=== PATIENT | male | born 1965 | race Caucasian/White ===

== ENCOUNTER 2016-04-22 13:15 | Emergency (ER) | payer OTHER ==
[2016-04-22 14:03] VITALS: BP 125/88
--- NOTE | 2016-04-22 15:08 | UC ---
UC General HPI - HPI Summary HPI Summary: 50 year old male presents complaining of fatigue, sore throat, and fever-like symptoms x 2-3 days. - History of Current Complaint Chief Complaint: UCGeneralIllness Stated Complaint: THROAT PAIN Time Seen by Provider: 04/22/16 14:42 Hx Obtained From: Patient Onset/Duration: Gradual Onset Onset Severity: Mild Current Severity: Moderate - Pain upon swallowing - Allergy/Home Medications Allergies/Adverse Reactions: Allergies Allergy/AdvReac Type Severity Reaction Status Date / Time Clonazepam [From Klonopin] Allergy Altered Verified 10/01/14 17:33 Mental Status Ziprasidone [From Geodon] Allergy Unknown Verified 10/01/14 17:33 Reaction Details Home Medications: Home Medications Ibuprofen TAB* [Advil TAB*] 600 mg PO 04/22/16 [History] - Additional Comments Additional History of Present Illness Comments: Daughter diagnosed with Influenza 2 days ago 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 PMH/Surg Hx/FS Hx/Imm Hx Previously Healthy: Yes - [place] Endocrine History Of: Denies: Diabetes, Thyroid Disease Cardiovascular History Of: Denies: Cardiac Disorders, Hypertension, Pacemaker/ICD Respiratory History Of: Reports: Asthma - NOT SINCE LOSING WEIGHT Denies: COPD GI/ History Of: Reports: Ulcer Neurological History Of: Denies: Seizures, Migraine Psychological History Of: Reports: Anxiety, Depression, Bipolar Disorder - Surgical History Surgical History: Yes Surgery Procedure, Year, and Place: CYST ABOVE EYE REMOVED. 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 [employer] Alcohol Use: Weekly Alcohol Amount: 1-2 Substance Use Type: Marijuana Substance Use Comment - Amount & Last Used: OCCASIONALLY Smoking Status (MU): Heavy Every Day Tobacco Smoker Type: Cigarettes Amount Used/How Often: 1 PPD Length of Time of Smoking/Using Tobacco: 40+ YEARS Have You Smoked in the Last Year: Yes Household Exposure Type: Cigarettes - Immunization History Most Recent Influenza Vaccination: unknown Most Recent Tetanus Shot: unknown Most Recent Pneumonia Vaccination: unknown Review of Systems Constitutional: Fever, Chills, Fatigue Skin: Negative Eyes: Negative ENT: Sore Throat Respiratory: Negative Cardiovascular: Negative Gastrointestinal: Vomiting - Once this morning after trying to eat breakfast, denies feeling nauseated currently Genitourinary: Negative Motor: Negative Neurovascular: Negative Musculoskeletal: Negative Neurological: Negative Psychological: Negative All Other Systems Reviewed And Are Negative: Yes Physical Exam Triage Information Reviewed: Yes Appearance: Well-Appearing, No Pain Distress Vital Signs: Initial Vital Signs Temp 98.4 F 04/22/16 13:59 Pulse 67 04/22/16 13:59 Resp 18 04/22/16 13:59 BP 125/88 04/22/16 13:59 Pulse Ox 99 04/22/16 13:59 Vital Signs Reviewed: Yes Eye Exam: Normal Eyes: Positive: Conjunctiva Clear ENT: Positive: Hearing grossly normal, Pharyngeal erythema, TMs normal, Tonsillar exudate Dental Exam: Normal Neck: Positive: Supple, Nontender, No Lymphadenopathy Respiratory: Positive: Chest non-tender, Lungs clear, Normal breath sounds, No respiratory distress, No accessory muscle use Cardiovascular: Positive: RRR, No Murmur, Pulses Normal Abdomen Description: Positive: Nontender, No Organomegaly, Soft Bowel Sounds: Positive: Present Musculoskeletal Exam: Normal Musculoskeletal: Positive: Strength Intact, ROM Intact Neurological Exam: Normal Neurological: Positive: Alert Psychological Exam: Normal Course/Dx - Differential Dx - Multi-Symptom Provider Diagnoses: Pharyngitis of viral origin. Upper respiratory infection Discharge - Discharge Plan Condition: Stable Disposition: HOME Patient Education Materials: Pharyngitis (ED), Upper Respiratory Infection (ED) Referrals: Mitul Tapia MD [Primary Care Provider] - If Needed Additional Instructions: As discussed, seek medical attention from Primary Care or another facility with any new or worsening symptoms.
== END 2016-04-22 15:39 | disposition home or self-care (01) ==
LOC: UCEAST 13:15
DX: J02.9 Acute pharyngitis, unspecified (principal); J06.9 Acute upper respiratory infection, unspecified; Z88.8 Allergy status to other drugs, medicaments and biological substances; F17.210 Nicotine dependence, cigarettes, uncomplicated
CPT/HCPCS: 87502; 87651; 99211; G0463

== ENCOUNTER 2016-04-27 04:22 | Emergency (ER) | payer OTHER ==
--- NOTE | 2016-04-27 05:00 | ED ---
I, Anthony,Bayron, scribed for Daksha Davenport MD on 04/27/16 at 0453 . Influenza-Like Illness - HPI Summary HPI Summary: This 50 y/o male presents to ED for rhinorrhea, productive cough since a week ago. Pt has been controlling his symptoms with Mucinex. Pt lives with his . Current smoker and drinker. 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 FHx is positive for cardiac dz to father. Primary care involves Dr. Tapia. - History of Current Complaint Time Seen by Provider: 04/27/16 04:35 Hx Obtained From: Patient Onset/Duration: Gradual Onset Associated Signs & Symptoms: Cough - Allergy/Home Medications Allergies/Adverse Reactions: Allergies Allergy/AdvReac Type Severity Reaction Status Date / Time Clonazepam [From Klonopin] Allergy Altered Verified 10/01/14 17:33 Mental Status Ziprasidone [From Geodon] Allergy Unknown Verified 10/01/14 17:33 Reaction Details PMH/Surg Hx/FS Hx/Imm Hx Endocrine/Hematology History: Denies: Hx Diabetes, Hx Thyroid Disease Cardiovascular History: Denies: Hx Hypertension, Hx Pacemaker/ICD Respiratory History: Reports: Hx Asthma - NOT SINCE LOSING WEIGHT, Hx Sleep Apnea, Other Respiratory Problems/Disorders - 1-3 ppd smoker Denies: Hx Chronic Obstructive Pulmonary Disease (COPD) GI History: Reports: Hx Ulcer History: Reports: Other Problems/Disorders - UTI's Musculoskeletal History: Reports: Hx Orthopedic Injury - torn ACL Sensory History: Denies: Hx Hearing Aid Neurological History: Denies: Hx Migraine, Hx Seizures Psychiatric History: Reports: Hx Anxiety, Hx Depression, Hx Inpatient Treatment , Hx Community Mental Health Tx, Hx Bipolar Disorder, Hx of Violent Episodes Against Others Denies: Hx Eating Disorder, Hx Panic Disorder - Surgical History Surgery Procedure, Year, and Place: CYST ABOVE EYE REMOVED. 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 [employer] Alcohol Use: Weekly Alcohol Amount: 1-2 Hx Substance Use: Yes Substance Use Type: Reports: Marijuana Substance Use Comment - Amount & Last Used: OCCASIONALLY Hx Tobacco Use: Yes Smoking Status (MU): Heavy Every Day Tobacco Smoker Type: Cigarettes Amount Used/How Often: 1 PPD Length of Time of Smoking/Using Tobacco: 40+ YEARS Have You Smoked in the Last Year: Yes Review of Systems Negative: Fever Positive: Nasal Discharge Negative: Chest Pain Positive: Cough Negative: Anxious, Depressed All Other Systems Reviewed And Are Negative: Yes Physical Exam Triage Information Reviewed: Yes Vital Signs Reviewed: Yes Appearance: Positive: Well-Appearing, No Pain Distress Skin: Positive: Warm, Skin Color Reflects Adequate Perfusion, Dry Head/Face: Positive: Normal Head/Face Inspection Eyes: Positive: JACOBY, Conjunctiva Clear ENT: Positive: Pharynx normal Neck: Positive: Supple, Nontender, No Lymphadenopathy Respiratory/Lung Sounds: Positive: Clear to Auscultation, Breath Sounds Present Cardiovascular: Positive: RRR, Pulses are Symmetrical in both Upper and Lower Extremities Musculoskeletal: Positive: Strength/ROM Intact Neurological: Positive: Sensory/Motor Intact, Alert, Oriented to Person Place, Time Flu Symptom Course/Dx - Course Course Of Treatment: well appearing male with sxms of green nasal discharge and some sinus discomfort for about 7 days. I have encouraged him to wait a few more days but have ordered augmentin for him to start him symptoms don't resolve - Diagnoses Provider Diagnoses: Sinusitis Discharge - Discharge Plan Condition: Stable Disposition: HOME The documentation as recorded by the Anthony shepard Soohyun accurately reflects the service I personally performed and the decisions made by me, Daksha Davenport MD.
[2016-04-27 05:24] VITALS: BP 116/79
== END 2016-04-27 05:25 | disposition home or self-care (01) ==
LOC: ED 04:22
DX: J32.9 Chronic sinusitis, unspecified (principal); R05 Cough; F17.210 Nicotine dependence, cigarettes, uncomplicated
CPT/HCPCS: 99282

== ENCOUNTER 2016-05-05 08:59 | Observation (INO) | payer OTHER ==
[~2016-05-05 08:59] MED LIST: Buffered Lidocaine 1% SYR 3ML* 3 ML/SYR SYRINGE INTRADERM ONE; Sodium Citrate/Citric Acid* 15 ML UDC PO ONE
[2016-05-05] MEDS ORDERED: Sodium Citrate/Citric Acid* 15 ML UDC ONE (09:06)
[2016-05-05] MEDS ORDERED: fentaNYL* 50 MCG/ML 2 ML VIAL (100 MCG VIAL) ONE ×3 (11:28→12:50)
[2016-05-05] MEDS ORDERED: Propofol* 10 MG/ML 20 ML BTL IV PUSH ONE ×2 (11:28→12:04)
[2016-05-05] MEDS ORDERED: Lidocaine 2% PF * 5 ML VIAL ONE (11:28)
[2016-05-05] MEDS ORDERED: Ondansetron INJ* 2 MG/ML VIAL IV PRN ×2 (12:18→12:30)
[2016-05-05] MEDS ORDERED: HYDROcodone/ACETAMIN 5-325 MG* 1 TAB PO PRN ×2 (12:30)
[2016-05-05] MEDS ORDERED: Ondansetron INJ* 2 MG/ML VIAL IM PRN (12:30)
[2016-05-05] MEDS ORDERED: Acetaminophen TAB* 325 MG PO PRN (12:30)
[2016-05-05] MEDS ORDERED: Morphine INJ* 2 MG/ML 1 ML CARPUJECT IV PRN (12:30)
[2016-05-05] MEDS ORDERED: Ondansetron TAB* 4 MG PO PRN (12:30)
[2016-05-05] MEDS: fentaNYL* 50 MCG/ML 2 ML VIAL (100 MCG VIAL) IV PRN ×2 (12:52→13:01)
[2016-05-05] MEDS ORDERED: HYDROcodone/ACET. 7.5/325 LIQ* 15 ML UDC PO PRN ×2 (12:55→21:47)
[2016-05-05] MEDS ORDERED: HYDROcodone/ACET. 7.5/325 LIQ* 15 ML UDC ONE (13:05)
[2016-05-05] MEDS ORDERED: Ibuprofen TAB* 600 MG PO SCH (21:00)
[2016-05-05] MEDS ORDERED: Amoxicillin/Clavulanate TAB* 875 MG PO SCH (21:00)
[2016-05-05] MEDS ORDERED: Lithium Carbonate TAB* 300 MG PO SCH (21:00)
[2016-05-05] MEDS ORDERED: lamoTRIgine TAB(*) 100 MG PO SCH (21:00)
[2016-05-05] MEDS ORDERED: Zolpidem TAB* 10 MG PO SCH (21:00)
[2016-05-05] MEDS: Gabapentin CAP(*) 300 MG PO SCH (21:47)
[2016-05-05] MEDS: HYDROcodone/ACET. 7.5/325 LIQ* 15 ML UDC PO PRN (22:00)
[2016-05-05] MEDS: Ibuprofen ADULT LIQ* 600 MG/30 ML UDC PO SCH (23:05)
[2016-05-06] MEDS: HYDROcodone/ACET. 7.5/325 LIQ* 15 ML UDC PO PRN ×3 (02:15→10:10)
[2016-05-06] MEDS: Ibuprofen ADULT LIQ* 600 MG/30 ML UDC PO SCH (08:41)
[2016-05-06] MEDS: Gabapentin CAP(*) 300 MG PO SCH (08:42)
[2016-05-06] MEDS ORDERED: lamoTRIgine TAB(*) 100 MG PO SCH (09:00)
[2016-05-06] MEDS ORDERED: Lithium Carbonate TAB* 300 MG PO SCH (09:00)
[2016-05-06] MEDS ORDERED: predniSONE TAB* 20 MG PO SCH (09:00)
--- NOTE | 2016-05-06 09:49 | OP ---
DATE OF OPERATION: 05/05/16 - ROOM #333 DATE OF : 67 SURGEON: Dr. Haley. ANESTHESIOLOGIST: Doug Montes DO ANESTHESIA: General PRE-OP DIAGNOSES: Hypertrophied tonsils, hypertrophied uvula and soft palate, and obstructive sleep apnea. POST-OP DIAGNOSES: Hypertrophied tonsils, hypertrophied uvula and soft palate, and obstructive sleep apnea. OPERATIVE PROCEDURE: Tonsillectomy and UPPP. INDICATIONS: Brief History: This 50-year-old gentleman with markedly enlarged tonsils, crowding of the soft palate, uvula, obstructive symptoms of sleep apnea , sleep study diagnosed sleep apnea, intolerant to CPAP, elected for surgical management. DESCRIPTION OF PROCEDURE: The patient was taken to the operating room. General anesthesia was given. The patient was intubated. Tongue, mandible, and soft palate were retracted. Bipolar dissection was carried out once the tonsils were removed. Hemostasis was obtained. Next we turned our attention to the uvuloplasty. A evelia shape of the mucosa of the uvula and soft palate was removed in a single layer. Portions of the muscle was removed, portion of the soft tissue was removed. I then advanced the posterior pillars to the anterior pillars and sutured it using multiple mattress Vicryl sutures. A evelia shaped defect was folded on to itself and soft palate-uvular junction was closed using interrupted Vicryl. Once this was done completely throughout the length of the uvula and soft palate, the patient was awakened, extubated, and sent to the recovery room in stable condition. Instrument and sponge count correct. Blood loss was approximately 25 cc. [id number]/[facility] #: [id number] [facility] HOSPITALArvin
[2016-05-06 11:59] VITALS: BP 125/69
== END 2016-05-06 13:10 | disposition home or self-care (01) ==
LOC: OR 08:59 → OBSVTOIN 15:12 → SSU 15:12 → INTOOBSV 15:12
PROVIDERS: ADMIT Otolaryngology; ATTEND Otolaryngology
PROC: 0CBNXZZ Excision of Uvula, External Approach (ICD-10-PCS; 2016-05-05)
PROC: 0CTPXZZ Resection of Tonsils, External Approach (ICD-10-PCS; 2016-05-05)
PROC: 0CB3XZZ Excision of Soft Palate, External Approach (ICD-10-PCS; principal; 2016-05-05 10:30)
DX: J35.1 Hypertrophy of tonsils (principal); G47.33 Obstructive sleep apnea (adult) (pediatric); K13.79 Other lesions of oral mucosa; Q38.2 Macroglossia; F17.210 Nicotine dependence, cigarettes, uncomplicated; Z88.8 Allergy status to other drugs, medicaments and biological substances
CPT/HCPCS: 88304; 96374; A9270-GY; G0378; J2270; J2704; J3010; J7512

== ENCOUNTER → 2016-08-11 04:06 | Emergency (ER) | payer OTHER ==
[~2016-08-11 04:06] MED LIST changes: -Buffered Lidocaine 1% SYR 3ML* 3 ML/SYR SYRINGE INTRADERM ONE; +Cyclobenzaprine TAB* 10 MG ONE; +Cyclobenzaprine TAB* 10 MG PO ONE; +Ketorolac INJ* 60 MG/2 ML VIAL IM ONE; +Ketorolac INJ* 60 MG/2 ML VIAL ONE; -Sodium Citrate/Citric Acid* 15 ML UDC PO ONE
[2016-08-11 04:45] LABS: Hematocrit 48 % (42-52); Mean Corpuscular HGB Conc 34 g/dl (31-36); Mean Corpuscular Hemoglobin 32 pg (27-31); Mean Corpuscular Volume 96 fL (80-94); Mean Platelet Volume 8 um3 (7.4-10.4); Red Blood Count 4.97 10^6/ul (4.0-5.4); Red Cell Distribution Width 13 % (10.5-15); White Blood Count 9.6 10^3/ul (3.5-10.8)
[2016-08-11 04:56] LABS: BUN/Creatinine Ratio 14.3 (8-20); Calcium 9.6 mg/dL (8.6-10.3); EGFR African American 104.5 (>60); EGFR Non-African American 81.3 (>60); Potassium 3.9 mmol/L (3.5-5.0)
[2016-08-11 05:32] VITALS: BP 93/63
--- NOTE | 2016-08-11 05:45 | ED ---
Eduin Jackson Benjamin, scribed for Stephen Maldonado MD on 08/11/16 at 0423 . Back Pain - HPI Summary HPI Summary: 50yo male c/o bilateral LE and lower back pain for 3 days now. Pt also describes his legs feeling like falling asleep and diffuse body aches. Pt denies any injuries and states having similar symptoms before. Took ibuprofen for pain but didnt not help. Denies fever. - History of Current Complaint Chief Complaint: EDExtremityLower Stated Complaint: BODY ACHES/BOTH LEG PAINS/WEAKNESS Time Seen by Provider: 08/11/16 04:16 Hx Obtained From: Patient Onset/Duration: Lasting Days - 3days, Still Present Onset/Duration: Started Days Ago - 3days, Atraumatic, Still Present Timing: Constant Back Pain Location: Is Discrete @ - bilateral lower back, bilateral LE Severity Initially: Moderate Severity Currently: Moderate Pain Intensity: 8 Pain Scale Used: 0-10 Numeric Aggravating Symptom(s): Nothing Alleviating Symptom(s): Nothing Associated Signs And Symptoms: Positive: Numbness - in legs. Negative: Fever - Allergies/Home Medications Allergies/Adverse Reactions: Allergies Allergy/AdvReac Type Severity Reaction Status Date / Time Clonazepam [From Klonopin] Allergy Severe Altered Verified 04/28/16 09:31 Mental Status Ziprasidone [From Geodon] Allergy Severe increased Verified 04/28/16 09:31 anger Latex Allergy Intermediate itchy rash Verified 04/28/16 10:12 on hands PMH/Surg Hx/FS Hx/Imm Hx Endocrine/Hematology History: Denies: Hx Diabetes, Hx Thyroid Disease Cardiovascular History: Denies: Hx Hypertension, Hx Pacemaker/ICD Respiratory History: Reports: Hx Asthma, Hx Sleep Apnea, Other Respiratory Problems/Disorders - 1-3 ppd smoker Denies: Hx Chronic Obstructive Pulmonary Disease (COPD) GI History: Reports: Hx Ulcer - healed up History: Denies: Other Problems/Disorders Musculoskeletal History: Reports: Hx Orthopedic Injury - torn ACL, Other Musculoskeletal History - pinched nerve in neck to shoulder on left Sensory History: Denies: Hx Contacts or Glasses, Hx Hearing Aid Opthamlomology History: Denies: Hx Contacts or Glasses Neurological History: Denies: Hx Migraine, Hx Seizures Psychiatric History: Reports: Hx Anxiety - Bipolar, Hx Depression, Hx Inpatient Treatment, Hx Community Mental Health Tx, Hx Bipolar Disorder, Hx of Violent Episodes Against Others Denies: Hx Eating Disorder, Hx Panic Disorder - Surgical History Surgery Procedure, Year, and Place: CYST ABOVE right EYE REMOVED - local. WISDOM TEETH Hx Anesthesia Reactions: No Infectious Disease History: No Infectious Disease History: Denies: Hx Hepatitis, Hx Human Immunodeficiency Virus (HIV), Traveled Outside the [place] in Last 30 Days - Family History Known Family History: Positive: Cardiac Disease - Father [place] at 69, Diabetes, Other - Mother pancreatic [place]- 61 - Social History Occupation: Employed Full-time Lives: With Family Alcohol Use: Weekly Alcohol Amount: 1-2 Hx Substance Use: Yes Substance Use Type: Reports: Marijuana Substance Use Comment - Amount & Last Used: OCCASIONALLY Hx Tobacco Use: Yes Smoking Status (MU): Heavy Every Day Tobacco Smoker Type: Cigarettes Amount Used/How Often: 1 PPD Length of Time of Smoking/Using Tobacco: 40+ YEARS Have You Smoked in the Last Year: Yes Review of Systems Constitutional: Negative Negative: Fever Eyes: Negative ENT: Negative Cardiovascular: Negative Respiratory: Negative Gastrointestinal: Negative Genitourinary: Negative Positive: Myalgia - diffuse, Other - bilaterl LE and lower back pain Skin: Negative Positive: Numbness - in legs Psychological: Normal All Other Systems Reviewed And Are Negative: Yes Physical Exam Triage Information Reviewed: Yes Vital Signs On Initial Exam: Initial Vitals Temp Pulse Resp BP Pulse Ox 97.4 F 66 14 109/77 95 08/11/16 04:11 08/11/16 04:11 08/11/16 04:11 08/11/16 04:11 08/11/16 04:11 Vital Signs Reviewed: Yes Appearance: Positive: Well-Appearing, Pain Distress - mild discomfort Skin: Positive: Warm Head/Face: Positive: Normal Head/Face Inspection Eyes: Positive: JACOBY ENT: Positive: Hearing grossly normal Neck: Positive: Supple Respiratory/Lung Sounds: Positive: Breath Sounds Present Cardiovascular: Positive: RRR Abdomen Description: Positive: Nontender, Soft Musculoskeletal: Positive: Strength/ROM Intact, Other - mild lower lumbar spasm Neurological: Positive: Sensory/Motor Intact, Alert, Oriented to Person Place, Time, Normal Gait Psychiatric: Positive: Affect/Mood Appropriate Diagnostics - Vital Signs Vital Signs Temp Pulse Resp BP Pulse Ox 08/11/16 04:11 97.4 F 66 14 109/77 95 - Laboratory Lab Results: Lab Results 08/11/16 08/11/16 Range/Units 04:20 04:20 WBC 9.6 (3.5-10.8) 10^3/ul RBC 4.97 (4.0-5.4) 10^6/ul Hgb 16.0 (14.0-18.0) g/dl Hct 48 (42-52) % MCV 96 H (80-94) fL MCH 32 H (27-31) pg MCHC 34 (31-36) g/dl RDW 13 (10.5-15) % Plt Count 209 (150-450) 10^3/ul MPV 8 (7.4-10.4) um3 Neut % (Auto) 62.0 (38-83) % Lymph % (Auto) 26.2 (25-47) % [place] % (Auto) 6.1 (1-9) % Eos % (Auto) 1.7 (0-6) % Baso % (Auto) 4.0 H (0-2) % Absolute Neuts (auto) 5.9 (1.5-7.7) 10^3/ul Absolute Lymphs (auto) 2.5 (1.0-4.8) 10^3/ul Absolute Monos (auto) 0.6 (0-0.8) 10^3/ul Absolute Eos (auto) 0.2 (0-0.6) 10^3/ul Absolute Basos (auto) 0.4 H (0-0.2) 10^3/ul Absolute Nucleated RBC 0 10^3/ul Nucleated RBC % 0 Sodium 135 (133-145) mmol/L Potassium 3.9 (3.5-5.0) mmol/L Chloride 104 (101-111) mmol/L Carbon Dioxide 25 (22-32) mmol/L Anion Gap 6 (2-11) mmol/L BUN 14 (6-24) mg/dL Creatinine 0.98 (0.67-1.17) mg/dL Est GFR ( Amer) 104.5 (>60) Est GFR (Non-Af Amer) 81.3 (>60) BUN/Creatinine Ratio 14.3 (8-20) Glucose 150 H (70-100) mg/dL Calcium 9.6 (8.6-10.3) mg/dL Total Creatine Kinase 46 (10-223) U/L Result Diagrams: 08/11/16 04:20 08/11/16 04:20 Lab Statement: Any lab studies that have been ordered have been reviewed, and results considered in the medical decision making process. Re-Evaluation - Re-Evaluation First Eval Change: Improved Back Pain Course/Dx - Diagnoses Provider Diagnoses: Myalgia, Lower back pain Discharge - Discharge Plan Condition: Stable Disposition: HOME Patient Education Materials: Back Pain (ED), Musculoskeletal Pain (ED) Forms: *Work Release Referrals: Mitul Tapia MD [Primary Care Provider] - The documentation as recorded by the Eduin shepard Benjamin accurately reflects the service I personally performed and the decisions made by me, Stephen Maldonado MD.
== END | disposition home or self-care (01) ==
LOC: ED 04:06
DX: M54.5 Low back pain (principal); R53.1 Weakness; M79.1 Myalgia
CPT/HCPCS: 36415; 80048; 82550; 85025; 96372; 99282; A9270-GY; J1885

== ENCOUNTER 2017-12-23 03:45 | Emergency (ER) | payer OTHER ==
[2017-12-23] MEDS ORDERED: Albuterol/Ipratropium NEB.SOL* Albuterol 2.5 MG/Ipratropium 0.5 MG 3 ML INH ONE (04:26)
[2017-12-23] MEDS ORDERED: Ibuprofen TAB* 800 MG PO ONE (04:26)
[2017-12-23] MEDS ORDERED: Pseudoephedrine TAB* 30 MG PO ONE (04:26)
[2017-12-23] MEDS ORDERED: Albuterol 2.5 MG/3 ML NEB.SOL* (0.083%) INH ONE (04:26)
--- NOTE | 2017-12-23 04:34 | ED ---
Throat Pain/Nasal Congestion - HPI Summary HPI Summary: The pt is a 52 y/o male [facility]/o sore throat since 3 days ago. He notes sinus congestion and bilateral ear pain but denies fever. The pt took Mucinex to no relief. - History of Current Complaint Chief Complaint: EDUpperRespComplaint Time Seen by Provider: 12/23/17 04:15 Hx Obtained From: Patient, Family/Head Waiter Onset/Duration: Sudden Onset, Lasting Days - 3 days, Still Present - Allergies/Home Medications Allergies/Adverse Reactions: Allergies Allergy/AdvReac Type Severity Reaction Status Date / Time clonazepam [From Klonopin] Allergy Altered Verified 12/23/17 03:55 Mental Status latex Allergy Rash Verified 12/23/17 03:55 ziprasidone [From Geodon] Allergy See Comment Verified 12/23/17 03:55 PMH/Surg Hx/FS Hx/Imm Hx Previously Healthy: No Endocrine/Hematology History: Denies: Hx Diabetes, Hx Thyroid Disease Cardiovascular History: Denies: Hx Hypertension, Hx Pacemaker/ICD Respiratory History: Reports: Hx Asthma, Hx Sleep Apnea, Other Respiratory Problems/Disorders - 1-3 ppd smoker Denies: Hx Chronic Obstructive Pulmonary Disease (COPD) GI History: Reports: Hx Ulcer - healed up History: Denies: Other Problems/Disorders Musculoskeletal History: Reports: Hx Orthopedic Injury - torn ACL, Other Musculoskeletal History - pinched nerve in neck to shoulder on left Sensory History: Denies: Hx Contacts or Glasses, Hx Hearing Aid Opthamlomology History: Denies: Hx Contacts or Glasses Neurological History: Denies: Hx Migraine, Hx Seizures Psychiatric History: Reports: Hx Anxiety - Bipolar, Hx Depression, Hx Inpatient Treatment, Hx Community Mental Health Tx, Hx Bipolar Disorder, Hx of Violent Episodes Against Others Denies: Hx Eating Disorder, Hx Panic Disorder - Surgical History Surgery Procedure, Year, and Place: CYST ABOVE right EYE REMOVED - local. WISDOM TEETH Hx Anesthesia Reactions: No Infectious Disease History: No Infectious Disease History: Denies: Hx Hepatitis, Hx Human Immunodeficiency Virus (HIV), Traveled Outside the US in Last 30 Days - Family History Known Family History: Positive: Cardiac Disease - Father [place] at 69, Diabetes, Other - Mother pancreatic [place]- 61 - Social History Occupation: Employed Full-time Lives: With Family Alcohol Use: Weekly Alcohol Amount: 1-2 Hx Substance Use: Yes Substance Use Type: Reports: Marijuana Substance Use Comment - Amount & Last Used: OCCASIONALLY Hx Tobacco Use: Yes Smoking Status (MU): Heavy Every Day Tobacco Smoker Type: Cigarettes Amount Used/How Often: 1 PPD Length of Time of Smoking/Using Tobacco: 40+ YEARS Have You Smoked in the Last Year: Yes Review of Systems Negative: Fever ENT: Other - Positive: Nasal congestion Positive: Sore Throat, Ear Ache - Bilateral All Other Systems Reviewed And Are Negative: Yes Physical Exam - Summary Physical Exam Summary: VITAL SIGNS: Reviewed. GENERAL: Patient is a well-developed and nourished male who is lying comfortable in the stretcher. Patient is not in any acute respiratory distress. HEAD AND FACE: No signs of trauma. No ecchymosis, hematomas or skull depressions. No sinus tenderness. EYES: PERRLA, EOMI x 2, No injected conjunctiva, no nystagmus. EARS: Hearing grossly intact. Ear canals and tympanic membranes are within normal limits. MOUTH: Oropharynx within normal limits. NECK: Supple, trachea is midline, no adenopathy, no JVD, no carotid bruit, no c- spine tenderness, neck with full ROM. CHEST: Symmetric, no tenderness at palpation LUNGS: Clear to auscultation bilaterally. No wheezing or crackles.Decreased breath sounds bilaterally CVS: Regular rate and rhythm, S1 and S2 present, no murmurs or gallops appreciated. ABDOMEN: Soft, non-tender. No signs of distention. No rebound no guarding, and no masses palpated. Bowel sounds are normal. EXTREMITIES: FROM in all major joints, no edema, no cyanosis or clubbing. NEURO: Alert and oriented x 3. No acute neurological deficits. Speech is normal and follows commands. SKIN: Dry and warm Triage Information Reviewed: Yes Vital Signs On Initial Exam: Initial Vitals Temp Pulse Resp BP Pulse Ox 97.3 F 73 18 110/75 97 12/23/17 03:52 12/23/17 03:52 12/23/17 03:52 12/23/17 03:52 12/23/17 03:52 Vital Signs Reviewed: Yes Diagnostics - Vital Signs Vital Signs Temp Pulse Resp BP Pulse Ox 12/23/17 03:52 97.3 F 73 18 110/75 97 - Laboratory Lab Statement: Any lab studies that have been ordered have been reviewed, and results considered in the medical decision making process. EENT Course/Dx - Course Course Of Treatment: A 52 year-old M presents to the ED with a CC of sore throat since 3 days ago. He notes sinus congestion and bilateral ear pain but denies fever. The pt took Mucinex to no relief. A physical exam revealed decreased breath sounds bilaterally. In the ED course, pt was given Albuterol 2.5 mg INH, Albuterol 1 neb INH, Ibuprofen 8000mg PO and Pseudoephedrine 30mg which improved the symptoms. Patient will be discharged with a final Dx of cold. Pt is agreeable with this plan. Allergies noted. - Diagnoses Provider Diagnoses: Cold Discharge - Sign-Out/Discharge Documenting (check all that apply): Patient Departure - DC - Discharge Plan Condition: Stable Disposition: HOME Prescriptions: Albuterol HFA INHALER* [Ventolin HFA Inhaler*] 2 puff INH Q6H PRN #1 mdi PRN Reason: Sob/Wheezing Ibuprofen TAB* [Motrin TAB* 800 MG] 800 mg PO Q6H PRN #30 tab PRN Reason: Pain Patient Education Materials: Upper Respiratory Infection (ED) Forms: *Work Release Referrals: Mitul Tapia MD [Primary Care Provider] - 2 Days Additional Instructions: RETURN TO THE EMERGENCY DEPARTMENT FOR CHANGING OR WORSENING SYMPTOMS. FOLLOW UP WITH PCP IN 1-2 DAYS. - Attestation Statements Document Initiated by Scribe: Yes Documenting Scribe: Ada Riebiro Provider For Whom Scribe is Documenting (Include Credential): Dr. Jeovany Hernandez MD Scribe Attestation: Ada Jackson scribed for Dr. Jeovany Hernandez MD on 12/23/17 at 0633.
[2017-12-23] MEDS ORDERED: Albuterol HFA INHALER* 8 gm MDI INH PRN (05:04)
[2017-12-23] MEDS ORDERED: Albuterol HFA INHALER* 8 gm MDI INH ONE (05:19)
[2017-12-23 05:23] VITALS: BP 138/74
== END 2017-12-23 05:23 | disposition home or self-care (01) ==
LOC: ED 03:45
DX: J00 Acute nasopharyngitis [common cold] (principal); J02.9 Acute pharyngitis, unspecified; H92.03 Otalgia, bilateral; F17.210 Nicotine dependence, cigarettes, uncomplicated
CPT/HCPCS: 99283; A9270-GY

== ENCOUNTER 2018-07-24 04:47 | Emergency (ER) | payer OTHER ==
[2018-07-24] MEDS ORDERED: NS 0.9% 1000 ML** 1,000 ML IV ONE (05:12)
[2018-07-24] MEDS ORDERED: Ketorolac INJ* 30 MG/ML 1 ML VIAL IV PUSH ONE (05:12)
[2018-07-24] MEDS ORDERED: Metoclopramide IV* 5 MG/ML 2 ML VIAL IV SLOW PU ONE (05:12)
--- NOTE | 2018-07-24 05:24 | ED ---
Bite Injury/Animal - HPI Summary HPI Summary: This patient is a 52 year old M presenting to ED with a chief complaint of abdominal pain lasting a couple of days. The patient rates the pain 9/10 in severity. Symptoms aggravated by nothing. Symptoms alleviated by nothing. Patient reports nausea since 07/22/18 0800. Patient denies vomiting and fever. Patient had a tick bite about 3 weeks ago and was bit by something else in the right lower back. He now has an pruritic rash around the area, presenting a few days ago without discharge/drainage. It was initially black and his applied peroxide and triple antibiotic ointment. PMHx of asthma, sleep apnea, ulcer, orthopedic injury, pinched nerve in neck to shoulder on left, anxiety, depression, bipolar disorder but no DM, thyroid disease, HTN, COPD, seizures, migraines, panic disorder. PSHx of cyst above right eye removed and wisdom teeth. FHx of DM, cardiac disease, and pancreatic CA. Patient uses alcohol, marijuana, and cigarettes. - History of Current Complaint Chief Complaint: EDGeneral Stated Complaint: "PREVIOUS TICK BITE/GI SYMPTOMS/RASH" PER PT Hx Obtained From: Patient Onset of Injury: Happened days ago - Bite of unknown origin few days ago, Happened weeks ago - Tick bite 3 weeks ago, Still Present Type of Bite: Wild Animal - Tick Severity Currently: Severe Pain Intensity: 9 Pain Scale Used: 0-10 Numeric Aggravating Factor(s): Nothing Alleviating Factor(s): Nothing Associated Signs And Symptoms: Negative: Fever, Drainage Animal Available for Observation: No - Allergies/Home Medications Allergies/Adverse Reactions: Allergies Allergy/AdvReac Type Severity Reaction Status Date / Time clonazepam [From Klonopin] Allergy Altered Verified 07/24/18 04:52 Mental Status latex Allergy Rash Verified 07/24/18 04:52 ziprasidone [From Geodon] Allergy See Comment Verified 07/24/18 04:52 Home Medications: Home Medications Temazepam 30 mg PO BEDTIME 07/24/18 [History Confirmed 07/24/18] PMH/Surg Hx/FS Hx/Imm Hx Endocrine/Hematology History: Denies: Hx Diabetes, Hx Thyroid Disease Cardiovascular History: Denies: Hx Hypertension, Hx Pacemaker/ICD Respiratory History: Reports: Hx Asthma, Hx Sleep Apnea, Other Respiratory Problems/Disorders - 1-3 ppd smoker Denies: Hx Chronic Obstructive Pulmonary Disease (COPD) GI History: Reports: Hx Ulcer - healed up History: Denies: Other Problems/Disorders Musculoskeletal History: Reports: Hx Orthopedic Injury - torn ACL, Other Musculoskeletal History - pinched nerve in neck to shoulder on left Sensory History: Denies: Hx Contacts or Glasses, Hx Hearing Aid Opthamlomology History: Denies: Hx Contacts or Glasses Neurological History: Denies: Hx Migraine, Hx Seizures Psychiatric History: Reports: Hx Anxiety - Bipolar, Hx Depression, Hx Inpatient Treatment, Hx Community Mental Health Tx, Hx Bipolar Disorder, Hx of Violent Episodes Against Others Denies: Hx Eating Disorder, Hx Panic Disorder - Surgical History Surgery Procedure, Year, and Place: CYST ABOVE right EYE REMOVED - local. WISDOM TEETH Hx Anesthesia Reactions: No Infectious Disease History: No Infectious Disease History: Denies: Hx Hepatitis, Hx Human Immunodeficiency Virus (HIV), Traveled Outside the [place] in Last 30 Days - Family History Known Family History: Positive: Cardiac Disease - Father [place] at 69, Diabetes, Other - Mother pancreatic [place]- 61 - Social History Alcohol Use: Weekly Alcohol Amount: 1-2 Hx Substance Use: Yes Substance Use Type: Reports: Marijuana Substance Use Comment - Amount & Last Used: OCCASIONALLY Hx Tobacco Use: Yes Smoking Status (MU): Heavy Every Day Tobacco Smoker Type: Cigarettes Amount Used/How Often: 1 PPD Length of Time of Smoking/Using Tobacco: 40+ YEARS Have You Smoked in the Last Year: Yes Review of Systems Negative: Fever Positive: Abdominal Pain, Nausea. Negative: Vomiting Skin: Other - Tick bite three weeks ago, new bite unknown source a few days ago Positive: Rash - Right lower back, pruritic All Other Systems Reviewed And Are Negative: Yes Physical Exam - Summary Physical Exam Summary: VITAL SIGNS: Reviewed. GENERAL: Patient is a well-developed and nourished male who is lying comfortable in the stretcher. Patient is not in any acute respiratory distress. HEAD AND FACE: No signs of trauma. No ecchymosis, hematomas or skull depressions. No sinus tenderness. EYES: PERRLA, EOMI x 2, No injected conjunctiva, no nystagmus. EARS: Hearing grossly intact. Ear canals and tympanic membranes are within normal limits. MOUTH: Oropharynx within normal limits. NECK: Supple, trachea is midline, no adenopathy, no JVD, no carotid bruit, no c- spine tenderness, neck with full ROM CHEST: Symmetric, no tenderness at palpation LUNGS: Clear to auscultation bilaterally. No wheezing or crackles. CVS: Regular rate and rhythm, S1 and S2 present, no murmurs or gallops appreciated. ABDOMEN: Soft, non-tender. No signs of distention. No rebound no guarding, and no masses palpated. Bowel sounds are normal. EXTREMITIES: FROM in all major joints, no edema, no cyanosis or clubbing. NEURO: Alert and oriented x 3. No acute neurological deficits. Speech is normal and follows commands. SKIN: Localized skin rash that looks like an insect bite in the right lower back Triage Information Reviewed: Yes Vital Signs On Initial Exam: Initial Vitals Temp Pulse Resp BP Pulse Ox 97.8 F 82 18 112/88 95 07/24/18 04:48 07/24/18 04:48 07/24/18 04:48 07/24/18 04:48 07/24/18 04:48 Vital Signs Reviewed: Yes Diagnostics - Vital Signs Vital Signs Temp Pulse Resp BP Pulse Ox 07/24/18 05:03 98.3 F 18 07/24/18 05:01 82 96 07/24/18 04:48 97.8 F 82 18 112/88 95 - Laboratory Result Diagrams: 07/24/18 05:22 07/24/18 05:22 Lab Statement: Any lab studies that have been ordered have been reviewed, and results considered in the medical decision making process. Bite Injury Course/Dx - Course Course Of Treatment: This patient is a 52 year old M presenting to ED with a chief complaint of abdominal pain lasting a couple of days. During ED course, patient was given Toradol, Reglan, and fluids. Bloodwork obtained. Patient will be discharged home with dx of abdominal pain. Patient understands and agrees with this plan. - Diagnoses Provider Diagnosis: Abdominal pain Discharge - Sign-Out/Discharge Documenting (check all that apply): Patient Departure - Discharge Patient Received Moderate/Deep Sedation with Procedure: No - Discharge Plan Condition: Stable Disposition: HOME Patient Education Materials: Abdominal Pain (ED) Referrals: Mitul Tapia MD [Primary Care Provider] - 3 Days Additional Instructions: Follow-up with your primary care physician in 3 days. PLEASE RETURN TO THE ED IMMEDIATELY FOR WORSENING OR CONCERNING SYMPTOMS. - Attestation Statements Document Initiated by Scribe: Yes Documenting Scribe: Trung Charles Provider For Whom Scribe is Documenting (Include Credential): Mary Thayer MD Scribe Attestation: I, Trung Charles, scribed for Mary Thayer MD on 07/24/18 at 0622. Status of Scribe Document: Ready
[2018-07-24 05:44] LABS: ABS Basophils 0.1 10^3/ul (0-0.2); ABS Eosinophils 0.2 10^3/ul (0-0.6); ABS Monocytes 0.7 10^3/ul (0-0.8); ABS Neutrophils 6.1 10^3/ul (1.5-7.7); Eosinophil % 2.2 %; Hematocrit 46 % (42-52); Hemoglobin 15.9 g/dL (14.0-18.0); Lymphocyte % 22.3 %; Mean Corpuscular HGB Conc 35 g/dL (31-36); Mean Corpuscular Hemoglobin 33 pg (27-31); Mean Corpuscular Volume 96 fL (80-94); Mean Platelet Volume 7.6 fL (7.4-10.4); Nucleated Red Blood Cells % 0.1; Platelet Count 262 10^3/uL (150-450); Red Blood Count 4.79 10^6 /uL (4.18-5.48); Red Cell Distribution Width 13 % (10.5-15); White Blood Count 9.1 10^3/uL (3.5-10.8)
[2018-07-24 05:58] LABS: Albumin 4.5 g/dL (3.2-5.2); Albumin/Globulin Ratio 1.7 (1-3); BUN/Creatinine Ratio 16.8 (8-20); C Reactive Protein 4.9 mg/L (<8.01); Calcium 9.9 mg/dL (8.6-10.3); EGFR African American 101.1 (>60); EGFR Non-African American 83.6 (>60); Globulin 2.7 g/dL (2-4); Magnesium 1.6 mg/dL (1.9-2.7); Potassium 3.8 mmol/L (3.5-5.0); Total Bilirubin 0.6 mg/dL (0.2-1.0); Total Protein 7.2 g/dL (6.4-8.9)
[2018-07-24 06:30] VITALS: BP 98/72
== END 2018-07-24 06:30 | disposition home or self-care (01) ==
LOC: ED 04:47
DX: R10.9 Unspecified abdominal pain (principal); F17.210 Nicotine dependence, cigarettes, uncomplicated; J45.909 Unspecified asthma, uncomplicated; G47.30 Sleep apnea, unspecified; F32.9 Major depressive disorder, single episode, unspecified
CPT/HCPCS: 36415; 80053; 82150; 83690; 83735; 85025; 86140; 86618; 96361; 96374; 96375; 99283; J1885; J2765

== ENCOUNTER 2018-07-25 18:19 | Emergency (ER) | payer OTHER ==
--- NOTE | 2018-07-25 18:21 | UC ---
Skin Complaint HPI - History of Current Complaint Time Seen by Provider: 07/25/18 18:20 Stated Complaint: TICK - Allergy/Home Medications Allergies/Adverse Reactions: Allergies Allergy/AdvReac Type Severity Reaction Status Date / Time clonazepam [From Klonopin] Allergy Altered Verified 07/24/18 04:52 Mental Status latex Allergy Rash Verified 07/24/18 04:52 ziprasidone [From Geodon] Allergy See Comment Verified 07/24/18 04:52 PMH/Surg Hx/FS Hx/Imm Hx Psychological History: Anxiety, Depression, Bipolar Disorder - Surgical History Surgical History: Yes Surgery Procedure, Year, and Place: CYST ABOVE right EYE REMOVED - local. WISDOM TEETH - Family History Known Family History: Positive: Cardiac Disease - Father [place] at 69, Diabetes, Other - Mother pancreatic [place]- 61 - Social History Alcohol Use: Weekly Alcohol Amount: 1-2 Substance Use Type: Marijuana Substance Use Comment - Amount & Last Used: OCCASIONALLY Smoking Status (MU): Heavy Every Day Tobacco Smoker Type: Cigarettes Amount Used/How Often: 1 PPD Length of Time of Smoking/Using Tobacco: 40+ YEARS Have You Smoked in the Last Year: Yes Household Exposure Type: Cigarettes - Immunization History Most Recent Influenza Vaccination: winter, this season Most Recent Tetanus Shot: unknown Most Recent Pneumonia Vaccination: none Review of Systems All Other Systems Reviewed And Are Negative: Yes Constitutional: Positive: Negative Skin: Positive: Other - Tick bite Respiratory: Positive: Negative Cardiovascular: Positive: Negative Neurological: Positive: Negative Psychological: Positive: Negative Physical Exam - Summary Physical Exam Summary: GENERAL: NAD. WDWN. No pain distress. SKIN: there is a 7mm diameter of mild erythema and edema with central 1mm area of superficial skin loss. No streaking, bleeding, or drainage. NECK: Supple. Nontender. No lymphadenopathy. CHEST: No accessory muscle use. Breathing comfortably and in no distress. CV: Pulses intact. Cap refill <2seconds NEURO: Alert. PSYCH: Age appropriate behavior. Triage Information Reviewed: Yes Vital Signs Reviewed: Yes Discharge - Discharge Plan Referrals: Mitul Tapia MD [Primary Care Provider] -
--- NOTE | 2018-07-25 18:22 | UC ---
Abdominal Pain Male HPI - HPI Summary HPI Summary: 52 yo male presents with tick bite 2 days ago and body aches. He was seen for this in the ER last night, but states they "did not do anything". According to the records some labwork was drawn and was WNL, he was given toradol, reglan, and fluids, and pt was discharged with dx of "abdominal pain". Pt did have a lyme test done last night that was negative. His symptoms are continued today. He also admits to a mild cough, but says this is his usual "smoker's cough". He denies fever, chills, sinus symptoms, sore throat, SOB, abdominal pain today, vomiting. - History of Current Complaint Stated Complaint: TICK Time Seen by Provider: 07/25/18 18:20 Hx Obtained From: Patient Onset/Duration: Sudden Onset Severity Initially: Mild Severity Currently: Mild Pain Intensity: 6 Pain Scale Used: 0-10 Numeric - Allergies/Home Medications Allergies/Adverse Reactions: Allergies Allergy/AdvReac Type Severity Reaction Status Date / Time clonazepam [From Klonopin] Allergy Altered Verified 07/25/18 18:28 Mental Status latex Allergy Rash Verified 07/25/18 18:28 ziprasidone [From Geodon] Allergy See Comment Verified 07/25/18 18:28 PMH/Surg Hx/FS Hx/Imm Hx Psychological History: Anxiety, Depression, Bipolar Disorder - Surgical History Surgical History: Yes Surgery Procedure, Year, and Place: CYST ABOVE right EYE REMOVED - local. WISDOM TEETH - Family History Known Family History: Positive: Cardiac Disease - Father [place] at 69, Diabetes, Other - Mother pancreatic [place]- 61 - Social History Lives: With Family Alcohol Use: Weekly Alcohol Amount: 1-2 Substance Use Type: Marijuana Substance Use Comment - Amount & Last Used: OCCASIONALLY Smoking Status (MU): Heavy Every Day Tobacco Smoker Type: Cigarettes Amount Used/How Often: 1 PPD Length of Time of Smoking/Using Tobacco: 40+ YEARS Have You Smoked in the Last Year: Yes Household Exposure Type: Cigarettes - Immunization History Most Recent Influenza Vaccination: winter, this season Most Recent Tetanus Shot: unknown Most Recent Pneumonia Vaccination: none Review of Systems All Other Systems Reviewed And Are Negative: Yes Constitutional: Positive: Other - Body aches Skin: Positive: Other - previous tick bite Eyes: Positive: Negative ENT: Positive: Negative Respiratory: Positive: Negative Cardiovascular: Positive: Negative Gastrointestinal: Positive: Negative Neurovascular: Positive: Negative Neurological: Positive: Negative Psychological: Positive: Negative Physical Exam - Summary Physical Exam Summary: GENERAL: NAD. WDWN. No pain distress. SKIN: No rashes, sores, lesions, or open wounds. HEENT: Head: AT/NC Eyes: EOM intact. Conjunctiva clear without inflammation or discharge. Ears: Hearing grossly normal. TMs intact, no bulging, erythema, or edema. Nose: Nasal mucosa pink and moist. NTTP maxillary and frontal sinus. Throat: Posterior oropharynx without exudates, erythema, or tonsillar enlargement. Uvula midline. NECK: Supple. Nontender. No lymphadenopathy. CHEST: Mild wheezing throughout. No accessory muscle use. Breathing comfortably and in no distress. CV: RRR. Without m/r/g. Pulses intact. Cap refill <2seconds NEURO: Alert. PSYCH: Age appropriate behavior. Triage Information Reviewed: Yes Vital Signs: Vital Signs: Temp Pulse Resp BP Pulse Ox 98.3 F 79 18 114/76 100 07/25/18 18:25 07/25/18 18:25 07/25/18 18:25 07/25/18 18:25 07/25/18 18:25 Vital Signs Reviewed: Yes Abd Pain Male Course/Dx - Course Course Of Treatment: CXR: No radiologist reading after 1800, therefore wet read by myself is negative for PNA. In the clinic he was given 200mg doxycycline due to his tick bite. Advised to bandaged the area with a band-aid and f/u if his symptoms do not improve in a few days. - Differential Dx/Clinical Impression Provider Diagnosis: Tick bite, Cough Discharge - Sign-Out/Discharge Documenting (check all that apply): Patient Departure All imaging exams completed and their final reports reviewed: No - Discharge Plan Condition: Stable Disposition: HOME Patient Education Materials: Tick Bite (ED) Forms: *Work Release Referrals: Mitul Tapia MD [Primary Care Provider] - Additional Instructions: If you develop a fever, shortness of breath, chest pain, new or worsening symptoms - please call your PCP or go to the ED immediately. 1) Your Chest X-Ray appears normal today. 2) You were treated with Doxycycline for your tick bite today to help prevent lyme disease. 3) Please apply neosporin and a band-aid to the area until well healed. I suspect you will start to feel better in a few days, but if you do not - please be rechecked by your primary doctor - Billing Disposition and Condition Condition: STABLE Disposition: Home
[2018-07-25 18:28] VITALS: BP 114/76
[2018-07-25] MEDS ORDERED: DOXYcycline CAP(*) 100 MG PO ONE (18:36)
[2018-07-25 18:54] LABS: Influenza A Molecular NEGATIVE (Negative); Influenza B Molecular NEGATIVE (Negative)
--- NOTE | 2018-07-26 14:08 | UC ---
- Progress Note Progress Note: RADIOLOGY REPORT REVIEWED. NO EVIDENCE FOR ACTIVE CARDIOPULMONARY DISEASE. NO CHANGE IN MGMT. Course/Dx - Diagnoses Provider Diagnoses: Tick bite, Cough Discharge - Sign-Out/Discharge Documenting (check all that apply): Post-Discharge Follow Up All imaging exams completed and their final reports reviewed: Yes - Discharge Plan Condition: Stable Disposition: HOME Patient Education Materials: Tick Bite (ED) Forms: *Work Release Referrals: Mitul Tapia MD [Primary Care Provider] - Additional Instructions: If you develop a fever, shortness of breath, chest pain, new or worsening symptoms - please call your PCP or go to the ED immediately. 1) Your Chest X-Ray appears normal today. 2) You were treated with Doxycycline for your tick bite today to help prevent lyme disease. 3) Please apply neosporin and a band-aid to the area until well healed. I suspect you will start to feel better in a few days, but if you do not - please be rechecked by your primary doctor - Billing Disposition and Condition Condition: STABLE Disposition: Home
== END 2018-07-25 19:05 | disposition home or self-care (01) ==
LOC: UCEAST 18:19
DX: M79.10 Myalgia, unspecified site (principal); R05 Cough; F41.9 Anxiety disorder, unspecified; F31.9 Bipolar disorder, unspecified; Z88.8 Allergy status to other drugs, medicaments and biological substances; Z91.040 Latex allergy status; F17.210 Nicotine dependence, cigarettes, uncomplicated
CPT/HCPCS: 71046; 99212; A9270-GY; G0463

== ENCOUNTER 2019-04-26 18:22 | Emergency (ER) | payer OTHER ==
--- OUTSIDE RECORDS SUMMARY | 2019-04-26 18:27 | XMS REPORT | Continuity of Care Document ---
:1965 External Reference #:[id number] Author Name Marce Joya MD (transmitted by agent of provider Anna Marie Villa) Address [address] [place] [address] Care Team Providers Name Role Phone Mitul Tapia III, MD - Internal Care Team Information [employer] Medicine Problems Active Problems Provider Date Dysuria Mitul Tapia M.D. Onset: 02/16/2012 Bipolar disorder Mitul Tapia M.D. Onset: 02/16/2012 Neck pain Nolan Sinclair M.D. Onset: 01/06/2015 Tobacco user Dafne George MD Onset: 12/11/2015 Obstructive sleep apnea syndrome Dafne George MD Onset: 12/11/2015 Social History Type Date Description Comments Sex Unknown ETOH Use Occasionally consumes alcohol Tobacco Use Start: Unknown Patient is a current 1 ppd; max 3 ppd. smoker, smokes every Began age 10 day Recreational Drug Use Former Drug User Smoking Status Reviewed: 04/24/19 Patient is a current 1 ppd; max 3 ppd. 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 Capsules evening Ibuprofen 1 by mouth three 90tabs M54.2 Mitul Tapia, 01/06/2015 600mg Tablets times a day after M.D. meals [place] Carbonate 3 tabs @ hs 60caps Unknown 300mg Capsules Lamotrigine 1 tablet in dawna 60tabs Unknown 150mg 2 at night Tablets [place] Carbonate take 2 capsule by Unknown 150mg mouth at bedtime Capsules Temazepam Take One Capsule Unknown 30mg Capsules By Mouth AT Bedtime Max 1 Day Immunizations CPT Code Status Date Vaccine Lot # [id number] Given 12/25/2015 Influenza Virus Vaccine, Quadrivalent, Split, Preservative Free [id number] Given 04/24/2012 Pneumonia Vaccine [id number] Given 04/24/2012 Tdap - Tetanus/Diptheria/Acellular Pertussis [id number] Vital Signs Date Vital Result Comment 04/24/2019 2:07pm Height 73 inches 6'1" Weight 216.00 lb Heart Rate 74 /min BP Systolic Sitting 104 mmHg BP Diastolic Sitting 72 mmHg Body Temperature 98.4 F O2 % BldC Oximetry 93 % BMI (Body Mass Index) 28.5 kg/m2 09/01/2018 2:17pm Height 73 inches 6'1" Weight 216.00 lb Heart Rate 88 /min BP Systolic 112 mmHg BP Diastolic 73 mmHg Body Temperature 98.0 F O2 % BldC Oximetry 96 % BMI (Body Mass Index) 28.5 kg/m2 Results Test Acquired Date Facility Test Result H/L Range Note Laboratory test 04/24/2019 [facility] Influenza A & B <pending> finding [address] [place] [address] [phone] Procedures Date Code Description Status 11/22/2008 [id number] Diabetic Retinal Eye Exam Completed Medical Devices Description No Information Available Encounters Description No Information Available Assessments Date Code Description Provider 04/24/2019 J06.9 Acute upper respiratory infection, unspecified Marce Joya MD Plan of Treatment No Information Available Functional Status Description No Information Available Mental Status Description No Information Available Referrals Description No Information Available
[2019-04-26 19:20] VITALS: BP 106/78
--- NOTE | 2019-04-26 19:42 | UC ---
FLU HPI - HPI Summary HPI Summary: 53-year-old male presenting with nonproductive cough, sore throat, postnasal drainage 1 week. Denies nasal congestion. He notes intermittent chills, HAs, and body aches as well. States he was seen at his primary care office 2 days ago and had a negative flu test. Denies shortness of breath and wheezing. Denies nausea and vomiting. Denies taking anything for symptom relief. Patient is a smoker. - History of Current Complaint Chief Complaint: UCGeneralIllness Stated Complaint: RESP COMPLAINT Hx Obtained From: Patient Pain Intensity: 6 Pain Scale Used: 0-10 Numeric - Allergy/Home Medications Allergies/Adverse Reactions: Allergies Allergy/AdvReac Type Severity Reaction Status Date / Time clonazepam [From Klonopin] Allergy Altered Verified 04/26/19 19:20 Mental Status latex Allergy Rash Verified 04/26/19 19:20 ziprasidone [From Geodon] Allergy See Comment Verified 04/26/19 19:20 Home Medications: Home Medications Dm/PE/Acetaminophen/Doxylamine [Vicks Dayquil-Nyquil Cold-Flu] 1 tab PO DAILY PRN 04/26/19 [History Confirmed 04/26/19] PMH/Surg Hx/FS Hx/Imm Hx - Surgical History Surgical History: Yes Surgery Procedure, Year, and Place: CYST ABOVE right EYE REMOVED - local. WISDOM TEETH - Family History Known Family History: Positive: Cardiac Disease - Father [place] at 69, Diabetes, Other - Mother pancreatic [place]- 61 - Social History Alcohol Use: Weekly Alcohol Amount: 1-2 Substance Use Type: Marijuana Substance Use Comment - Amount & Last Used: OCCASIONALLY Smoking Status (MU): Heavy Every Day Tobacco Smoker Type: Cigarettes Amount Used/How Often: 1 PPD Length of Time of Smoking/Using Tobacco: 40+ YEARS Have You Smoked in the Last Year: Yes Household Exposure Type: Cigarettes - Immunization History Most Recent Influenza Vaccination: winter, this season Most Recent Tetanus Shot: unknown Most Recent Pneumonia Vaccination: none Review of Systems All Other Systems Reviewed And Are Negative: Yes Constitutional: Positive: Chills, Fatigue ENT: Positive: Sore Throat, Nasal Discharge - PND Respiratory: Positive: Cough - nonproductive. Negative: Shortness Of Breath Cardiovascular: Positive: Negative Gastrointestinal: Positive: Negative. Negative: Vomiting, Nausea Musculoskeletal: Positive: Myalgia Neurological: Positive: Headache Physical Exam - Summary Physical Exam Summary: Vital Signs Reviewed: Yes A+Ox3, no distress, well-appearing, appears older than stated age Eyes: Conjunctiva Clear ENT: Hearing grossly normal, TM x 2 clear, +PND, moist, uvula midline, no exudate, +pharyngeal erythema Neck: Positive: Supple Respiratory: Positive: No respiratory distress, No accessory muscle use + CTA throughout no w/r Cardiovascular: RRR nl s1, s2 no m/r Musculoskeletal Exam: THORNTON x 4 without difficulty Neurological: Positive: Alert Psychological: Positive: age appropriate behavior Skin: Positive: no rash, no ecchymosis Vital Signs: Initial Vital Signs Temp 99.4 F 04/26/19 19:15 Pulse 87 04/26/19 19:15 Resp 16 04/26/19 19:15 BP 106/78 04/26/19 19:15 Pulse Ox 97 04/26/19 19:15 Flu Course/Dx - Course Course Of Treatment: Patient declined repeat flu test. PE findings and VS WNL. Discussed viral illness and symptomatic treatment. I provided patient with prescription for Flonase and Tessalon Perles for cough relief. Instructed to increase fluids and refrain from smoking while symptoms are present. Instructed to follow up with PCP or [facility] if symptoms worsen or do not improve within 7 days. Patient voiced understanding and agreed with the treatment plan. - Differential Dx/Diagnosis Provider Diagnosis: Acute bronchitis, Post-nasal drip Discharge ED - Sign-Out/Discharge Documenting (check all that apply): Patient Departure All imaging exams completed and their final reports reviewed: No Studies - Discharge Plan Condition: Stable Disposition: HOME Prescriptions: Benzonatate CAP* [Tessalon 100 MG CAP*] 100 mg PO TID PRN #15 cap PRN Reason: Cough Fluticasone NASAL SPRAY 50MCG* [Flonase NASAL SPRAY 50MCG*] 2 spray BOTH NARES DAILY #1 btl Patient Education Materials: Acute Bronchitis (ED), Postnasal Drip (DC) Forms: *Work Release Referrals: Mitul Tapia MD [Primary Care Provider] - If Needed Additional Instructions: Your symptoms are likely caused by a virus and should resolve without treatment. Take the tesslon perles and use Flonase as directed for cough and congestion relief. Refrain from smoking while symptoms are present and increase your fluid intake. Follow up with your primary care provider if symptoms worsen or do not resolve within 7 days. - Billing Disposition and Condition Condition: STABLE Disposition: Home - Attestation Statements Provider Attestation: This patient was not seen by me. I was available for consult. Chart reviewed. KAYLEE
[2019-04-26] MEDS ORDERED: Benzonatate CAP* 100 MG PO ONE (20:12)
== END 2019-04-26 20:30 | disposition home or self-care (01) ==
LOC: UCEAST 18:22
DX: J20.9 Acute bronchitis, unspecified (principal); J02.9 Acute pharyngitis, unspecified; R09.82 Postnasal drip; F17.210 Nicotine dependence, cigarettes, uncomplicated; Z88.8 Allergy status to other drugs, medicaments and biological substances; Z91.040 Latex allergy status
CPT/HCPCS: 99212; A9270-GY; G0463